=== PATIENT | female | born 1995 | race Caucasian/White ===

== ENCOUNTER 2020-11-03 22:49 | Emergency (ER) | payer OTHER, SELFPAY ==
--- NOTE | ~2020-11-03 | US_ITS ---
EXAMINATION: US pelvic complete w TV DATE: 11/04/2020 00:49 INDICATION: Pelvic pain TECHNIQUE: Multiple transabdominal and endovaginal sonographic images of the pelvis were obtained. COMPARISON: None. FINDINGS: The uterus measures 6.8 x 4.1 x 4.0 cm. The endometrial complex measures 4 mm. An IUD is pr esent but seen within the lower uterine segment. The right ovary measures 3.5 x 3.2 x 3.0 cm. There i s a 2.2 x 1.6 cm cystic lesion of the right ovary with low-level internal echoes, likely hemorrhagic cyst. The left ovary measures 2.1 x 2.4 x 1.7 cm. There is normal vascular flow in the ovaries. There is no free fluid in the pelvis. IMPRESSION: 1. Likely hemorrhagic cyst of the right ovary. 2. Low position of the IUD within the lower uterine segment. Reviewed, dictated and finalized at location [facility]
[2020-11-03 22:53] VITALS: BP 111/61; PULSE 61; RESP 20; TEMP 36.6; O2SAT 100
[2020-11-03 23:17] LABS: Basophils Absolute Auto 0.1 K/mm3 (0.0-0.1); Basophils Percent Auto 0.7 % (0.2-1.2); Eosinophils Absolute Auto 0.7 K/mm3 (0-0.3); Eosinophils Percent Auto 6.8 % (0-4.4); Hematocrit 40.8 % (37.0-47.0); Hemoglobin 13.6 g/dL (12.0-15.0); Immature Granulocyte Absolute 0.04 K/mm3 (0.00-0.031); Immature Granulocyte Percent A 0.4 % (0-0.5); Lymphocytes Absolute Auto 2.38 K/mm3 (0.9-3.2); Mean Corpuscular HGB Conc 33.3 g/dl (32-36); Mean Corpuscular Hemoglobin 29.1 pg (26-34); Mean Corpuscular Volume 87.4 fl (80-100); Mean Platelet Volume 9.1 fl (7.4-10.4); Monocytes Absolute Auto 0.6 K/mm3 (0.1-0.6); Monocytes Percent Auto 5.7 % (2.6-8.5); Neutrophils Absolute Auto 6.6 K/mm3 (1.3-6.7); Neutrophils Percent Auto 63.4 % (45.5-73.1); Platelet Count Result 295 k/mm3 (150-375); Red Blood Count 4.67 M/mm3 (4.2-5.4); Red Cell Distribution Width 13.6 % (11.5-14.5); White Blood Count 10.3 K/mm3 (4.5-10.0)
[2020-11-03 23:26] LABS: Add Urine Microscopic? NO; Appearance Urine Clear (Clear); Bilirubin Urine Negative (Negative); Blood Urine Negative (Negative); Color Urine Yellow (Yellow); Glucose Urine UA Negative (Negative); Ketones Urine Negative (Negative); Leukocyte Esterase Ur Negative LEU/UL (Negative); Nitrate Urine Negative (Negative); Protein Urine Negative (Negative); Specific Grav Ur 1.021 (1.001-1.035); Urobilinogen Urine Negative mg/dL (<2.0)
[2020-11-03 23:29] LABS: Alanine Aminotransferase 15 U/L (4-35); Albumin Level 4.6 g/dL (3.5-5.1); Alkaline Phosphatase 38 U/L (38-126); Anion Gap 8 mmol/L (8-16); Aspartate Amino Transferase 31 U/L (14-36); Bilirubin,Total 0.2 mg/dL (0.2-1.3); Blood Urea Nitrogen 19 mg/dL (7-17); Calcium 9.3 mg/dL (8.4-10.2); Carbon Dioxide 27 mmol/L (22-30); Chloride 104 mmol/L (98-107); Estimated CRCL calculation 82 ml/min; Estimated Glomerular Filt Rate > 60; Glucose 106 mg/dL (65-105); Lipase 87 U/L (23-300); Potassium 3.4 mmol/L (3.4-5.0); Sodium 139 mmol/L (137-145)
--- NOTE | 2020-11-04 00:28 | PC.NURSE ---
Patient taken to US.
[2020-11-04 00:58] VITALS: BP 119/66; PULSE 83; RESP 17; O2SAT 98
--- NOTE | 2020-11-04 02:17 | ED.GENADULT ---
HPI - General Adult General Chief complaint: Abdominal Pain Stated complaint: abdominal pain Time Seen by Provider: 11/03/20 23:13 History of Present Illness HPI narrative: Patient is a 25-year-old female who presents ER with lower abdominal pain. Sudden onset prior to arrival. Has been persistent in intensity. No radiation. No nausea/vomiting/diarrhea. Does seem to radiate into her rectum. No vaginal bleeding or vaginal discharge. Has history of ovarian cyst in the past. This feels similar. No fevers chills or sweats. Patient does not believe that she could be as she has an IUD. Related Data Allergies Allergy/AdvReac Type Severity Reaction Status Date / Time No Known Allergies Allergy Verified 11/03/20 23:07 Review of Systems Review of Systems: All systems reviewed & are unremarkable except as noted in HPI and below Constitutional: Constitutional: Denies chills, Denies fever(s) and Denies weakness Gastrointestinal: Gastrointestinal: Reports abdominal pain, Denies diarrhea, Denies nausea and Denies vomiting Genitourinary: Genitourinary: Denies abnormal vaginal bleeding, Denies nocturia, Denies dysuria, Denies flank pain and Denies vaginal discharge PMFSH Past Medical History Medical History (Updated 11/04/20 @ 06:29 by Rajesh Rios MD) Healthy female adult Surgical History Surgical History (Updated 11/04/20 @ 06:29 by Rajesh Rios MD) No pertinent past surgical history Exam Narrative: Exam Narrative: GENERAL: Well-appearing, well-nourished, and in no acute distress. HEAD: Normocephalic, atraumatic. CHEST: Clear to auscultation. No respiratory distress. HEART: Regular rate and rhythm. Normal peripheral pulses. ABDOMEN: Soft, mild suprapubic and right lower quadrant tenderness without guarding, nondistended. EXTREMITIES: Normal range of motion. No edema. SKIN: Warm, dry, no rash. NEURO: Alert and oriented x3. PSYCH: Normal mood and affect. Course Course Emergency Course: Pain improved. Informed of results. Also discussed low lying IUD. Patient verbalized understanding of treatment and need for follow-up. 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 Vital Signs Vital signs: Vital Signs Temperature 97.9 F 11/03/20 22:53 Pulse Rate 61 11/03/20 22:53 Respiratory Rate 20 11/03/20 22:53 Blood Pressure 111/61 11/03/20 22:53 Pulse Oximetry 100 11/03/20 22:53 Temperature 97.9 F 11/03/20 22:53 Pulse Rate 83 11/04/20 00:58 Respiratory Rate 17 11/04/20 00:58 Blood Pressure 119/66 11/04/20 00:58 Pulse Oximetry 98 11/04/20 00:58 Medical Decision Making Vital Signs Vital Signs: Vital Signs Temperature 97.9 F 11/03/20 22:53 Pulse Rate 61 11/03/20 22:53 Respiratory Rate 20 11/03/20 22:53 Blood Pressure 111/61 11/03/20 22:53 Pulse Oximetry 100 11/03/20 22:53 Temperature 97.9 F 11/03/20 22:53 Pulse Rate 83 11/04/20 00:58 Respiratory Rate 17 11/04/20 00:58 Blood Pressure 119/66 11/04/20 00:58 Pulse Oximetry 98 11/04/20 00:58 Lab Data Result diagrams: 11/03/20 23:08 11/03/20 23:08 Labs: Lab Results 11/03/20 11/03/20 11/03/20 Range/Units 23:08 23:08 23:08 WBC 10.3 H (4.5-10.0) K/mm3 RBC 4.67 (4.2-5.4) M/mm3 Hgb 13.6 (12.0-15.0) g/dL Hct 40.8 (37.0-47.0) % MCV 87.4 (80-100) fl MCH 29.1 (26-34) pg MCHC 33.3 (32-36) g/dl RDW 13.6 (11.5-14.5) % Plt Count 295 (150-375) k/mm3 MPV 9.1 (7.4-10.4) fl Immature Gran % (Auto) 0.4 (0-0.5) % Neut % (Auto) 63.4 (45.5-73.1) % Lymph % (Auto) 23.0 (18.3-44.2) % [place] % (Auto) 5.7 (2.6-8.5) % Eos % (Auto) 6.8 H (0-4.4) % Baso % (Auto) 0.7 (0.2-1.2) % Lymph # (Auto) 2.38 (0.9-3.2) K/mm3 [place] # (Auto) 0.6 (0.1-0.6) K/mm3 Eos # (Auto) 0.7 H (0-0.3) K/mm3 Baso # (Auto) 0.1
== END 2020-11-04 02:32 | disposition home or self-care (01) ==
PROVIDERS: Emergency Provider Emergency Medicine
DX: N83.201 Unspecified ovarian cyst, right side (principal); Z97.5 Presence of (intrauterine) contraceptive device
CPT/HCPCS: 36415; 76830; 76856; 80053; 81003; 81025; 83690; 85025; 99284